=== PATIENT | male | born 1965 | race Caucasian/White ===

== ENCOUNTER 2018-02-14 09:08 | Day surgery (SDC) | payer BC, OTHER ==
[~2018-02-14 09:08] MED LIST: Lactated Ringers 1,000 ML IV SCH
[2018-02-14] MEDS ORDERED: Propofol 200 MG/20 ML SDV ONE ×3 (09:45→11:42)
[2018-02-14] MEDS ORDERED: fentaNYL 100 MCG/2 ML SDV ONE (09:46)
--- NOTE | 2018-02-14 17:55 | OR ---
DATE OF SURGERY: 02/14/2018. REFERRING PROVIDER: Allyson Antoine MD. PRE-OPERATIVE DIAGNOSIS: Positive family history of colon polyps in father. This is the patient's 1st colonoscopy. POST-OPERATIVE DIAGNOSIS: Fair to poor colon prep mainly in the right colon and sigmoid areas. Otherwise colon was normal in appearance. PROCEDURE: Colonoscopy. SURGEON: Bao Escalante M.D. ANESTHESIA: Monitored anesthesia care. BOWEL PREP: Fair to poor mostly in the right colon and sigmoid areas. DESCRIPTION OF PROCEDURE: Ernesto is a 52-year-old male, who was brought to the endoscopy suite after discussing risks and benefits of the procedure. Informed consent was obtained for conscious sedation and colonoscopy with or without biopsy and/or polypectomy. We also discussed possibility of missed lesions. Pre-procedure exam was unremarkable. IV, oxygen, and monitors were placed. The patient was placed in the left lateral decubitus position. Sedation was administered and a digital rectal exam was performed which was unremarkable. Colonoscope was passed into the rectum and slowly advanced all the way to the cecum. Cecum was viewed and photographed. At least a 3rd to half of the cecum was covered with fecal material. We were able to reposition the patient in view most of the lining of the right colon. No polyps of significance noted. The colonoscope was slowly withdrawn and the mucosa was closed observed in a direct circumferential manner. The transverse colon was unremarkable. The descending colon was unremarkable. The sigmoid colon did have some particulate liquid stool which did plug the scope on couple occasions. No sigmoid. No polyps of significance were noted. Retroflexion was performed and rectal mucosa was unremarkable. Scope was removed. The patient tolerated the procedure well. The patient was monitored until that baseline status. Discharge instructions were reviewed and the patient was discharged in good condition. COMPLICATIONS: None. ESTIMATED BLOOD LOSS: None. RECOMMENDATIONS/FOLLOW-UP: Normal colonoscopy. Given the fair to poor prep in spots as well as the family history of colon polyps, would recommend repeating again in 5 years. I would like to thank Dr. Antoine for this referral. DMB: 02/14/2018 12:13:45 MODL: 02/14/2018 17:47:39 /[id number]
== END 2018-02-14 13:02 | disposition home or self-care (01) ==
LOC: VM.SDS 09:08
PROVIDERS: ATTEND Family Medicine
DX: Z12.11 Encounter for screening for malignant neoplasm of colon (principal); I10 Essential (primary) hypertension; E11.9 Type 2 diabetes mellitus without complications; E78.00 Pure hypercholesterolemia, unspecified; E03.9 Hypothyroidism, unspecified; B35.1 Tinea unguium; E22.1 Hyperprolactinemia; Z79.899 Other long term (current) drug therapy; Z98.890 Other specified postprocedural states; Z80.0 Family history of malignant neoplasm of digestive organs
CPT/HCPCS: 45378; J2704; J3010; J7120

== ENCOUNTER 2023-06-28 08:28 | Day surgery (SDC) | payer BC ==
[2023-06-28] MEDS ORDERED: fentaNYL 100 MCG/2 ML SDV ONE (10:08)
[2023-06-28] MEDS ORDERED: Propofol 200 MG/20 ML SDV ONE ×2 (10:08→10:47)
== END 2023-06-28 12:40 | disposition home or self-care (01) ==
LOC: VM.SDS 08:28
PROVIDERS: ATTEND Family Medicine
DX: D12.8 Benign neoplasm of rectum (principal); K57.30 Diverticulosis of large intestine without perforation or abscess without bleeding; G47.00 Insomnia, unspecified; E78.00 Pure hypercholesterolemia, unspecified; I10 Essential (primary) hypertension; E03.9 Hypothyroidism, unspecified; E22.1 Hyperprolactinemia; E11.9 Type 2 diabetes mellitus without complications; E66.9 Obesity, unspecified; M10.072 Idiopathic gout, left ankle and foot; F48.9 Nonpsychotic mental disorder, unspecified; Z83.71 Family history of colonic polyps; Z68.36 Body mass index [BMI] 36.0-36.9, adult; Z98.890 Other specified postprocedural states; Z79.82 Long term (current) use of aspirin; Z79.890 Hormone replacement therapy; Z79.899 Other long term (current) drug therapy
CPT/HCPCS: 00812; J2704; J3010; J7120

== ENCOUNTER 2024-08-04 17:59 | Emergency (ER) | payer OTHER, BC | END 2024-08-04 18:29 | disposition home or self-care (01) | LOC: VM.ED 17:59 | DX: L25.3 Unspecified contact dermatitis due to other chemical products (principal); E78.00 Pure hypercholesterolemia, unspecified; I10 Essential (primary) hypertension; E11.9 Type 2 diabetes mellitus without complications; E03.9 Hypothyroidism, unspecified; Z79.82 Long term (current) use of aspirin; Z79.899 Other long term (current) drug therapy | CPT/HCPCS: 99283 ==